=== PATIENT | female | born 1995 | race Caucasian/White ===

== ENCOUNTER 2016-06-14 11:44 | Emergency (ER) | payer OTHER ==
[2016-06-14] MEDS ORDERED: ONDANSETRON 4 MG/2 ML VIAL IVP STA (12:25)
[2016-06-14] MEDS ORDERED: SODIUM CHLORIDE 0.9% 1,000 ML IV ONE (12:25)
[2016-06-14] MEDS ORDERED: ONDANSETRON 4 MG/2 ML VIAL ONE (12:49)
[2016-06-14] MEDS ORDERED: ONDANSETRON ODT 4 MG TABLET TL STA (13:13)
[2016-06-14] MEDS ORDERED: ONDANSETRON ODT 4 MG TABLET ONE (13:13)
[2016-06-14] MEDS ORDERED: METOCLOPRAMIDE 10 MG/2 ML VIAL IVP STA (14:09)
[2016-06-14] MEDS ORDERED: METOCLOPRAMIDE 10 MG/2 ML VIAL IVP ONE (14:23)
[2016-06-14] MEDS ORDERED: LACTATED RINGERS 1,000 ML IV STA (14:54)
[2016-06-14] MEDS ORDERED: PROCHLORPERAZINE 10 MG/2 ML VIAL IVP STA (14:54)
[2016-06-14] MEDS ORDERED: PROCHLORPERAZINE 10 MG/2 ML VIAL ONE (15:03)
[2016-06-14] MEDS ORDERED: PROMETHAZINE INJ 25 MG in SODIUM CHLORIDE 0.9% 50 ML IV STA (16:10)
[2016-06-14] MEDS ORDERED: PROMETHAZINE 25 MG/1 ML VIAL ONE (16:13)
[2016-06-14] MEDS ORDERED: ONDANSETRON ODT 4 MG Prepack 2 TL STA (17:30)
[2016-06-14] MEDS ORDERED: PROMETHAZINE 25 MG TABLET PO STA (17:30)
[2016-06-14] MEDS ORDERED: PROMETHAZINE 25 MG TABLET ONE (18:23)
[2016-06-14] MEDS ORDERED: ONDANSETRON ODT 4 MG Prepack 2 TL ONE (18:23)
== END 2016-06-14 18:34 | disposition home or self-care (01) ==
DX: K52.9 Noninfective gastroenteritis and colitis, unspecified (principal); Z87.891 Personal history of nicotine dependence
CPT/HCPCS: 36415; 74020; 80053; 81001; 81025; 83690; 96365; 96375; 99283; 99284; Q0162; Q0169

== ENCOUNTER 2016-06-15 13:30 | Emergency (ER) | payer OTHER ==
[2016-06-15] MEDS ORDERED: SODIUM CHLORIDE 0.9% 2,000 ML IV ONE (14:53)
[2016-06-15] MEDS ORDERED: ONDANSETRON 4 MG/2 ML VIAL IVP STA (15:37)
[2016-06-15] MEDS ORDERED: PROMETHAZINE INJ 25 MG in SODIUM CHLORIDE 0.9% 50 ML IV STA ×2 (15:37→17:24)
[2016-06-15] MEDS ORDERED: SODIUM CHLORIDE 0.9% 50 ML IV ONE (15:44)
[2016-06-15] MEDS ORDERED: ONDANSETRON 4 MG/2 ML VIAL ONE (15:44)
[2016-06-15] MEDS ORDERED: PROMETHAZINE 25 MG/1 ML VIAL ONE ×2 (15:44→17:31)
[2016-06-15] MEDS ORDERED: DEXTROSE 5%-0.45% NACL 1,000 ML IV ONE (17:24)
[2016-06-15] MEDS ORDERED: SODIUM CHLORIDE 0.9% 1,000 ML IV ONE (17:31)
[2016-06-15] MEDS ORDERED: SODIUM CHLORIDE 0.9% MINIBAG 100 ML IV ONE (17:31)
[2016-06-15] MEDS ORDERED: HALOPERIDOL 5 MG/ML VIAL IM STA (18:12)
[2016-06-15] MEDS ORDERED: HALOPERIDOL 5 MG/ML VIAL IVP STA (18:40)
[2016-06-15] MEDS ORDERED: HALOPERIDOL 5 MG/ML VIAL ONE (18:42)
== END 2016-06-15 20:10 | disposition home or self-care (01) ==
DX: E86.0 Dehydration (principal); E87.6 Hypokalemia; R11.2 Nausea with vomiting, unspecified
CPT/HCPCS: 36415; 80053; 83690; 85025; 96361; 96365; 96366; 96375; 99284; J7040